=== PATIENT | female | born 1985 | race Hispanic/Latino ===

== ENCOUNTER 2018-02-15 19:35 | Emergency (ER) | payer SELFPAY ==
[~2018-02-15] VITALS: Ht 167.6 cm; Wt 64.9 kg
[2018-02-15] MEDS ORDERED: ASPIRIN 81 MG CHEW TAB PO ONE (19:45)
[2018-02-15] MEDS ORDERED: LORAZEPAM INJ 2 MG/ML VIAL IV ONE (19:45)
[2018-02-15] MEDS ORDERED: LORAZEPAM 1 MG TAB PO ONE (20:00)
[2018-02-15 20:06] LABS: CLARITY,URINE SL CLOUDY (CLEAR); COLOR,URINE YELLOW (YELLOW)
[2018-02-15 20:07] LABS: BASOPHILS % 0.1 % (0.0-1.0); BILIRUBIN,URINE NEGATIVE (NEGATIVE); EOSINOPHILS % 0.1 % (0.0-6.0); HEMATOCRIT 36.7 % (34.2-44.1); HEMOGLOBIN 12.6 g/dL (12.0-16.0); KETONES,URINE TRACE (NEGATIVE); LEUKOCYTE ESTERASE ,URINE NEGATIVE (NEGATIVE); LYMPHOCYTES % 29.8 % (18.0-39.1); MEAN CORPUSCULAR HEMOGLOBIN 31.1 pg (28-32); MEAN CORPUSCULAR HGB CONC 34.3 g/dL (31-35); MEAN CORPUSCULAR VOLUME 90.6 fL (81-99); MONOCYTES # (AUTO) 0.8 (0.2-0.8); MONOCYTES % 7.6 % (4.4-11.3); NEUTROPHILS # (AUTO) 6.2 (2.1-6.9); NEUTROPHILS % 62.1 % (38.7-80.0); NITRITE,URINE NEGATIVE (NEGATIVE); PLATELET COUNT 244 x10e3/uL (140-360); PREGNANCY TEST, URINE NEGATIVE (NEGATIVE); PROTEIN,URINE DIPSTICK NEGATIVE (NEGATIVE); RED BLOOD COUNT 4.05 x10e6/uL (3.6-5.1); RED CELL DISTRIBUTION WIDTH 12.8 % (11.7-14.4); URINE UROBILINOGEN 0.2 mg/dL (0.2 - 1)
[2018-02-15 20:17] LABS: BACTERIA,URINE MODERATE /HPF; EPITHELIAL CELLS,URINE MANY /LPF; RBC,URINE 0-5 /HPF (0-5); TRANSITIONAL EPI CELLS,URINE FEW
[2018-02-15 20:25] LABS: ALANINE AMINOTRANSFERASE 53 IU/L (0-55); ALBUMIN 4.2 g/dL (3.5-5.0); ALBUMIN/GLOBULIN RATIO 1.2 (0.8-2.0); ALKALINE PHOSPHATASE 69 IU/L (40-150); ANION GAP 16.3 mmol/L (8-16); BLOOD UREA NITROGEN 15 mg/dL (7-26); BUN/CREATININE RATIO 16 (6-25); CALCIUM 9.6 mg/dL (8.4-10.2); CARBON DIOXIDE 21 mmol/L (22-29); CHLORIDE 106 mmol/L (98-107); CREATINE KINASE 81 IU/L (29-168); CREATININE, SERUM 0.91 mg/dL (0.57-1.11); EST GLOMERULAR FILTRATION RATE > 60 ML/MIN (60-); GLUCOSE 111 mg/dL (74-118); POTASSIUM 4.3 mmol/L (3.5-5.1); SODIUM 139 mmol/L (136-145)
--- NOTE | 2018-02-15 20:48 | Diagnostic Imaging Report ---
EXAM: XR CHEST 1 VIEW DATE: 02/15/2018 7:37 PM INDICATION: Pain COMPARISON: None FINDINGS: Lines and Tubes: None Heart and Mediastinum: No acute cardiomediastinal findings. Lungs and Pleura: No significant pleural effusion, pneumothorax, or focal consolidation. Bones and Soft Tissues: No acute findings. IMPRESSION: 1. No acute cardiopulmonary findings. Signed by: Dr. Guillaume Gonzalez MD on 02/15/2018 8:44 PM
== END 2018-02-15 21:39 | disposition home or self-care (01) ==
LOC: ER 19:35
DX: R07.89 Other chest pain (principal); R06.02 Shortness of breath; K21.9 Gastro-esophageal reflux disease without esophagitis
CPT/HCPCS: 36415; 71045; 80053; 81001; 81025; 82550; 82553; 84484; 85025; 85379; 93005; 99283

== ENCOUNTER 2020-01-09 17:58 | Emergency (ER) | payer SELFPAY ==
[~2020-01-09] VITALS: Ht 167.6 cm; Wt 64.9 kg
--- OUTSIDE RECORDS SUMMARY | 2020-01-09 18:01 | XMS REPORT ---
Author Author [facility] t Organization [facility] Address [address] [place] [address] Phone Unavailable Care Team Providers Care Stem Mounter Name Role Phone NO, PCP PCP Unavailable Ronnell HERNANDEZ Attphys Unavailable Payers Payer Name Policy Type Policy Number Effective Date Expiration Date S ource Problems This patient has no known problems. Allergies, Adverse Reactions, Alerts Allergy Name Allergy Type Status Severity Reaction(s) Onset Date Inacti ve Date Treating Clinician Comments Source No Known Allergies DA Active U 2016-10-16 00:00:00 [facility] Medications This patient has no known medications. Procedures Procedure Date / Time Performed Performing Clinician [facility] e X-ray of chest, single view 2018-02-15 00:00:00 VEGA HERNANDEZ L [facility] Encounters Start Date/Time End Date/Time Encounter Type Admission Type Attendi [facility] Care Department Encounter ID Source 2018-02-15 19:35:00 2018-02-15 21:39:00 Departed Emergency Room 1 SARA HERNANDEZ [facility] [id number] [facility] Results Test Description Test Time Test Comments Results Result Comments Source [facility] 2019-04-15 14:35:00 RUN DATE: 04/15/19 [facility] PAGE 1 RUN TIME: 1435 Specimen Inquiry RUN USER: INTERFACE PATIENT: TAWANNA FELIPE LOC: KYLE U #: [id number] AGE/SX: 34/F ROOM: [facility] RE04/10/19REG DR: Leigh Das : 89 BED: B DIS: 04/12/19 STATUS: DIS Hussain TLOC: SPEC #: [id number] RECD: 04/12/19 STATUS: SERVANDO REQ #: [id number] ESE: 04/11/19- SUBM DR: Leigh Das MD ENTERED: 04/12/19 SP TYPE: GALLBLADD OTHR DR: Kenny Lino MD ORDERED: GROSS COPIES TO: Leigh Das MD [address] [place] [address] Kenny Lino MD [address] [place] [address] [email or web address] MARKERS: ABNORMAL TISSUE, GALLBLADDER PROCEDURES: GROSS (04/15/19-105) TISSUES: GALLBLADDER, NOS CLINICAL HISTORY COLLECTION DATE: 04/11/2019 CHOLECYSTITIS FINAL DIAGNOSIS Gallbladder, cholecystectomy: ACUTE AND CHRONIC CHOLECYSTITIS CHOLELITHIASIS NEGATIVE FOR MALIGNANCY FA/coleman A 10677 MACROSCOPIC The specimen is received in formalin, labeled with the patient's name, and identified as "gallbladder". It consists of a gallbladder which measures 7 x 2.8 x 2 cm. The serosal surface is unremarkable. The gallbladder contains some brown bile and a couple of green-yellow irregular gallstones measuring CONTINUED ON NEXT PAGE RUN DATE: 04/15/19 [place] Pager [facility] PAGE 2 RUN TIME: 1435 Specimen Inquiry RUN USER: INTERFACE SPEC #: [id number] PATIENT: TAWANNA FELIPE #[id number] (Continued) MACROSCOPIC (Continued) up to 2.6 and 2.1 cm. The gallbladder mucosa is velvety and the gallbladder wall measures up to 0.5 cm in thickness. 0.6 cm of cystic duct is attached to the gallbladder. Samples of the specimen are submitted for microscopic evaluation in a single cassette. GROSS PERFORMED AT [facility] [address] [place] [place] [address] [phone])[phone] MICROSCOPIC All of the stains, including any controls performed, stain appropriately. MICROSCOPIC PERFORMED AT [facility] [address] [place] [address] [phone])[phone] PERFORMING SITE Diagnosis performed at: [facility], [place] [address] [facility] [place] [address] Signed SIGNATURE ON FILE Marielle Moore MD 04/15/19 1435 END OF REPORT HEPATIC FUNCTION PANEL 2019-04-12 10:03:00 Test Item TOTAL PROTEIN (test code = PROT) 6.3 gram/dL 6.4-8.2 L ALBUMIN (test code = ALB) 3.1 g/dL 3.4-5.0 L GLOBULIN (test code = GLOB) 3.2 gram/dL 2.7-4.2 N ALBUMIN/GLOBULIN RATIO (test code = A/G) 1.0 0.75-1.50 N BILIRUBIN TOTAL (test code = BILT) 0.60 mg/dL 0.0-1.0 N BILIRUBIN DIRECT (test code = BILD) 0.18 mg/dL 0.0-0.20 N SGOT/AST (test code = AST) 40 IUnit/L 15-37 H SGPT/ALT (test code = ALT) 48 IUnit/L 12-78 N ALKALINE PHOSPHATASE TOTAL (test code = ALKP) 66 IUnit/L 45-117 N Note change in reference range due to change in reagent. CBC W/AUTO [id number] 09:31:00* Test Item Value Reference Range Interpretation Comments WHITE BLOOD CELL (test code = WBC) 7.8 K/mm3 4.5-12.5 N RED BLOOD CELL (test code = RBC) 3.31 mill/mm3 3.7-5.2 L HEMOGLOBIN (test code = HGB) 10.4 gram/dL 11.5-15.5 L HEMATOCRIT (test code = HCT) 31.3 % 36.0-46.0 L MEAN CELL VOLUME (test code = MCV) 94.6 fL 80-98 N MEAN CELL HGB (test code = MCH) 31.4 picogram 27.0-33.0 N MEAN CELL HGB CONCETRATION (test code = MCHC) 33.2 gram/dL 33.0-36. 0 N RED CELL DISTRIBUTION WIDTH (test code = RDW) 12.8 % 11.6-16. 2 N RED CELL DISTRIBUTION WIDTH SD (test code = RDW-SD) 44.5 fL 37 .0-51.0 N PLATELET COUNT (test code = PLT) 158 K/mm3 150-450 N MEAN PLATELET VOLUME (test code = MPV) 11.0 fL 6.7-11.0 N NEUTROPHIL % (test code = NT%) 78.0 % 39.0-69.0 H IMMATURE GRANULOCYTE % (test code = IG%) 0.5 % 0.0-5.0 N LYMPHOCYTE % (test code = LY%) 14.0 % 25.0-55.0 L MONOCYTE % (test code = MO%) 7.4 % 0.0-10.0 N EOSINOPHIL % (test code = EO%) 0.0 % 0.0-5.0 N BASOPHIL % (test code = BA%) 0.1 % 0.0-1.0 N NUCLEATED RBC % (test code = NRBC%) 0.0 % 0-0 N NEUTROPHIL # (test code = NT#) 6.11 K/mm3 1.8-7.7 N IMMATURE GRANULOCYTE # (test code = IG#) 0.04 x10 3/uL 0-0.03 H LYMPHOCYTE # (test code = LY#) 1.10 K/mm3 1.0-5.0 N MONOCYTE # (test code = MO#) 0.58 K/mm3 0-0.8 N EOSINOPHIL # (test code = EO#) 0.00 K/mm3 0.0-0.5 N BASOPHIL # (test code = BA#) 0.01 K/mm3 0.0-0.2 N NUCLEATED RBC # (test code = NRBC#) 0.00 K/mm3 0.0-0.1 N MANUAL DIFF REQUIRED (test code = MDIFF) NO - HEPA IMAG INCL GB W [id number] 08:40:00 FAX: Leigh Holguin [phone] [place]: B St: ADM FAX: Francisco Baig MD [phone] Name: TAWANNA FELIPE [facility] : 1985 Age/S: 34/F [address] [facility] Unit #: [id number] Loc: [place] [address] Phys: Francisco Baig MD Acct: [id number] Dis Date: Status: ADM IN PHONE #: [phone] Exam Date: 04/11/2019 0831 FAX #: [phone] Reason: abd pain EXAMS: CPT CODE: [id number] HEPA IMAG INCL GB W PHA 78529 HISTORY: Abdominal pain. COMPARISON: Ultrasound from previous day. HIDA scan: 5.5 mCi of technetium 99m Choletec. Se quential images obtained. Homogeneous uptake within the live r. Excretion into the biliary system as well as into the small bowel. Nonv isualization of the gallbladder at 60 minutes would suggest cholecystitis. Correlate clinically. IMPRESSION: Nonvisualiz ation of the gallbladder at 60 minutes may suggest cholecystitis. Correl ate with clinical symptomatology. at 0840 Reported and signed by: Dacia Steinberg M.D. CC: Leigh Das MD; Francisco Baig MD Technologist: Niyah Staples RT(N) Trnscrd Date/Time/By: 04/11/2019 (0840) : By: [email or web address] Orig Print D/T: S: 04/11/2019 (3280) PAGE 1 Signed Report COMPREHENSIVE METABOLIC PANEL 2019-04-11 03:42:00* Test Item Value Reference Range Interpretation Comments SODIUM (test code = NA) 142 mmol/L 136-145 N POTASSIUM (test code = K) 4.4 mmol/L 3.5-5.1 N CHLORIDE (test code = CL) 112.0 mmol/L 98-107 H CARBON DIOXIDE (test code = CO2) 24.0 mmol/L 21-32 N ANION GAP (test code = GAP) 10.4 10-20 N GLUCOSE (test code = GLU) 93 mg/dL 74-106 N BLOOD UREA NITROGEN (test code = BUN) 7 mg/dL 7-18 N GLOMERULAR FILTRATION RATE (test code = GFR) > 60 mL/min >=60 Estimated GFR by using Modified MDRD formula.Chronic kidney disease is defined as either kidney damageor GFR <60 mL/min/1.73 m2 for >3 months. CREATININE (test code = CREAT) 0.60 mg/dL 0.55-1.02 N Note change in reference range due to change in reagent. BUN/CREATININE RATIO (test code = BUN/CREA) 11.7 10-20 N TOTAL PROTEIN (test code = PROT) 5.9 gram/dL 6.4-8.2 L ALBUMIN (test code = ALB) 2.9 g/dL 3.4-5.0 L GLOBULIN (test code = GLOB) 3.0 gram/dL 2.7-4.2 N ALBUMIN/GLOBULIN RATIO (test code = A/G) 1.0 0.75-1.50 N CALCIUM (test code = CA) 8.3 mg/dL 8.5-10.1 L BILIRUBIN TOTAL (test code = BILT) 0.70 mg/dL 0.0-1.0 N SGOT/AST (test code = AST) 27 IUnit/L 15-37 N SGPT/ALT (test code = ALT) 29 IUnit/L 12-78 N ALKALINE PHOSPHATASE TOTAL (test code = ALKP) 52 IUnit/L 45-117 N Note change in reference range due to change in reagent. [id number] 03:42:00* Test Item Value Reference Range Interpretation Comments LIPASE (test code = LIP) 164 U/L 73.0-393.0 N COMPREHENSIVE METABOLIC [id number] 03:29:00* Test Item Value Reference Range Interpretation Comments SODIUM (test code = NA) 142 mmol/L 136-145 N POTASSIUM (test code = K) 4.4 mmol/L 3.5-5.1 N CHLORIDE (test code = CL) 112.0 mmol/L 98-107 H CARBON DIOXIDE (test code = CO2) mmol/L 21-32 ANION GAP (test code = GAP) 10-20 GLUCOSE (test code = GLU) mg/dL 74-106 BLOOD UREA NITROGEN (test code = BUN) mg/dL 7-18 GLOMERULAR FILTRATION RATE (test code = GFR) mL/min >=60 CREATININE (test code = CREAT) mg/dL 0.55-1.02 BUN/CREATININE RATIO (test code = BUN/CREA) 10-20 TOTAL PROTEIN (test code = PROT) gram/dL 6.4-8.2 ALBUMIN (test code = ALB) g/dL 3.4-5.0 GLOBULIN (test code = GLOB) gram/dL 2.7-4.2 ALBUMIN/GLOBULIN RATIO (test code = A/G) 0.75-1.50 CALCIUM (test code = CA) mg/dL 8.5-10.1 BILIRUBIN TOTAL (test code = BILT) mg/dL 0.0-1.0 SGOT/AST (test code = AST) IUnit/L 15-37 SGPT/ALT (test code = ALT) IUnit/L 12-78 ALKALINE PHOSPHATASE TOTAL (test code = ALKP) IUnit/L 45-117 [id number] 03:29:00* Test Item Value Reference Range Interpretation Comments LIPASE (test code = LIP) U/L 73.0-393.0 CBC W/AUTO [id number] 03:26:00* Test Item Value Reference Range Interpretation Comments WHITE BLOOD CELL (test code = WBC) 9.1 K/mm3 4.5-12.5 N RED BLOOD CELL (test code = RBC) 3.31 mill/mm3 3.7-5.2 L HEMOGLOBIN (test code = HGB) 10.2 gram/dL 11.5-15.5 L RESULT VERIFIED BY REPEAT ANALYSIS HEMATOCRIT (test code = HCT) 31.1 % 36.0-46.0 L MEAN CELL VOLUME (test code = MCV) 94.0 fL 80-98 N MEAN CELL HGB (test code = MCH) 30.8 picogram 27.0-33.0 N MEAN CELL HGB CONCETRATION (test code = MCHC) 32.8 gram/dL 33.0-36. 0 L RED CELL DISTRIBUTION WIDTH (test code = RDW) 13.1 % 11.6-16. 2 N RED CELL DISTRIBUTION WIDTH SD (test code = RDW-SD) 45.0 fL 37 .0-51.0 N PLATELET COUNT (test code = PLT) 164 K/mm3 150-450 RESULT VERIFIED BY REPEAT ANALYSIS MEAN PLATELET VOLUME (test code = MPV) 11.1 fL 6.7-11.0 H NEUTROPHIL % (test code = NT%) 74.7 % 39.0-69.0 H IMMATURE GRANULOCYTE % (test code = IG%) 0.3 % 0.0-5.0 N LYMPHOCYTE % (test code = LY%) 17.2 % 25.0-55.0 L MONOCYTE % (test code = MO%) 7.4 % 0.0-10.0 N EOSINOPHIL % (test code = EO%) 0.2 % 0.0-5.0 N BASOPHIL % (test code = BA%) 0.2 % 0.0-1.0 N NUCLEATED RBC % (test code = NRBC%) 0.0 % 0-0 N NEUTROPHIL # (test code = NT#) 6.75 K/mm3 1.8-7.7 N IMMATURE GRANULOCYTE # (test code = IG#) 0.03 x10 3/uL 0-0.03 N LYMPHOCYTE # (test code = LY#) 1.56 K/mm3 1.0-5.0 N MONOCYTE # (test code = MO#) 0.67 K/mm3 0-0.8 N EOSINOPHIL # (test code = EO#) 0.02 K/mm3 0.0-0.5 N BASOPHIL # (test code = BA#) 0.02 K/mm3 0.0-0.2 N NUCLEATED RBC # (test code = NRBC#) 0.00 K/mm3 0.0-0.1 N - US ABDOMEN [id number] 15:03:00 Name: TAWANNA FELIPE [facility] : 1985 Age/S: 34 / F [address] [facility] Unit #: [id number] Loc: [place] [address] Phys: Francisco Baig MD Acct: [id number] Dis Date: Status: ADM IN PHONE #: [phone] Exam Date: 04/10/2019 1431 FAX #: [phone] Reason: upper abd pain EXAMS: CPT CODE: [id number] US ABDOMEN LTD 22613 REASON FOR EXAM: upper abd pain EXAM ORDER DATE: 04/10/2019 11:51 AM Attending M.D.: Francisco Baig MD PROCEDURE: - US ABDOMEN LTD Technique: Grayscale and color Doppler images images of the right-upper quadrant of the abdomen. Comparison: CT of the abdomen and pelvis earlier today at 10:57 AM FINDINGS: Aorta and IVC: Grossly normal caliber. Liver: Size: 15.2 cm craniocaudally Parenchyma and contour: Smooth contour. Normal echogenicity. Cysts and/or masses: None. Intrahepatic bile ducts: No intrahepatic biliary ductal dilation Common bile duct: 3.4 mm in diameter. No echogenic filling defects in visualized duct. Gallbladder: Stones/sludge: Multiple intraluminal stones are present, also seen on prior CT scan Wall: 5.8 mm in thickness. No discontinuity. No polyps. Gallbladder wall is slightly edematous. Sonographic Gallegos's sign: Negative Portal vein: Portal vein caliber is within normal limits. Portal vein is patent. Flow velocities normal. Mildly pulsatile waveforms are within normal limits. Pancreas: Incompletely visualized. However the visualized portions are grossly within normal limits. Right kidney: parenchyma echogenicity: Normal echogenicity size: 10.5 x 4.1 x 4.9 cm PAGE 1 Signed Report (CONTINUED) Name: TAWANNA FELIPE [facility] : 1985 Age/S: 34 / F [address] Unit #: [id number] Loc: [place] [address] Phys: Francisco Baig MD Acct: [id number] Dis Date: Status: ADM IN PHONE #: [phone] Exam Date: 04/10/2019 1431 FAX #: [phone] Reason: upper abd pain EXAMS: CPT CODE: [id number] US ABDOMEN LTD 90629 < Continued> stones: none cysts/masses: none hydronephrosis: none Ascites/pleural effusions: None IMPRESSION: Cholelithiasis with thickening and edema of the gallbladder wall. These findings may be seen with cholecystitis however the sonographic Gallegos sign is negative. Please note that the sonographic Gallegos sign may not be a reliable indicator of cholecystitis if the patient received pain medication prior to the exam. at 1503 Reported and signed by: Lucas Orlando MD CC: Francisco Baig MD Technologist: MIGUELITO SULLIVAN(R),[facility] Date/Time: 04/10/2019 (1503) [email or web address] Orig Print D/T: S: 04/10/2019 (1503) Probe: PAGE 2 Signed Report - CT ABD PELVIS W/CONT 2019-04-10 11:35:00 Name: TAWANNA FELIPE [facility] : 1985 Age/S: 34 / F [address] Unit #: [id number] Loc: [place] [address] Phys: Francisco Baig MD Acct: [id number] Dis Date: Status: REG ER PHONE #: [phone] Exam Date: 04/10/2019 1105 FAX #: [phone] Reason: LUQ and epigastric pain EXAMS: CPT CODE: [id number] CT ABD PELVIS W/CONT 76062 HISTORY: Left upper quadrant pain and epigastric pain. COMPARISON: None available. CT abdomen and pelvis with IV contrast: 100 mL of Isovue-370. Automated exposure control CT ABDOMEN: The lung bases are clear. The liver is enhancing homogeneously. No abnormal enhancing masses or lesions. The liver measured 16.7 cm in length. Main portal vein and hepatic artery are patent. Moderately distended gallbladder with calcified gallstones. Correlate for cholecystitis. Unremarkable spleen enhancing homogeneously. The stomach distends incompletely however it is normal in appearance. Pancreas is enhancing homogeneously. Unremarkable adrenals. Kidneys are free from hydroureteronephrosis. Homogeneous enhancement. Bilateral excretion is noted. No pathologic adenopathy. Well- opacified abdominal and pelvic vasculature. No bowel obstruction or colitis or diverticulitis or enteritis. Constipation. Mild thickening of the splenic flexure and proximal left colon likely underdistention is no inflammation is noted. CT PELVIS: Appendix is not visible with certainty but no inflammatory changes noted. Pelvic bowel loops are unobstructed. Unremarkable urinary bladder. Unremarkable uterus and ovaries demonstrating follicular changes. Small free fluid. No free air or abscess. No pelvic pathologic adenopathy. The subcutaneous tissues and the musculature are normal in appearance. No lytic or blastic lesions are noted within the bony skelet on. IMPRESSION: PAGE 1 Sign ed Report (CONTINUED) Name: TAWANNA FELIPE [facility] : 1985 Age/S: 34 / F [address] [facility] Unit #: [id number] Loc: [place] [address] Phys: Francisco Baig MD Acct: [id number] Dis Date: Status: REG ER PHONE #: [phone] Exam Date: 04/10/2019 1105 FAX #: [phone] Reason: LUQ and epigastric pain EXAMS: CPT CODE: [id number] CT ABD PELVIS W/CONT 73216 <Continued> Moderately distended gallbladder with calcified gallstones. Correlate for cholecystitis. No other acute intra-abdominal or intrapelvic pathology. Appendix is not visible but no inflammatory changes noted. Mild thickening of the splenic flexure and proximal left colon without inflammation likely underdistention. at 1137 Reported and signed by: Kaveh Steinberg M.D. CC: Francisco Baig MD Technologist:Eber Church RT(R)(CT) CTDI: DLP: Trnscb Date/Time: 04/10/2019 (1318) [email or web address] Orig Print D/T: S: 04/10/2019 (4088) PAGE 2 Signed Report URINALYSIS [id number] 11:22:00* Test Item Value Reference Range Interpretation Comments UA COLOR (test code = COLU) YELLOW YELLOW UA APPEARANCE (test code = APPU) CLEAR CLEAR UA GLUCOSE DIPSTICK (test code = DGLUU) TRACE mg/dL NEGATIVE UA BILIRUBIN DIPSTICK (test code = BILU) NEGATIVE NEGATIVE UA KETONE DIPSTICK (test code = KETU) NEGATIVE mg/dL NEGATIVE UA SPECIFIC GRAVITY (test code = SGU) 1.015 1.001-1.035 UA BLOOD DIPSTICK (test code = JUDE) NEGATIVE NEGATIVE UA PH DIPSTICK (test code = KIMBERLY) 8.0 5.0-8.0 UA PROTEIN DIPSTICK (test code = PROU) NEGATIVE mg/dL Neg-15 UA UROBILINIOGEN DIPSTICK (test code = URO) 0.2 mg/dL 0.0-0.2 UA NITRITE DIPSTICK (test code = EUGENE) NEGATIVE NEGATIVE UA LEUKOCYTE ESTERASE W REFLEX (test code = LEUUR) NEGATIVE NEG ATIVE UA WBC (test code = WBCU) 0-1 per HPF 0-5 UA RBC (test code = RBCU) NONE SEEN per HPF 0-5 UA EPITHELIAL CELLS (test code = EPIU) Few (2-5/hpf) per HPF Few UA BACTERIA (test code = BACU) FEW per HPF NONE Urine Source? Clean CatchURINALYSIS [id number] 10:53:00* Test Item Value Reference Range Interpretation Comments UA COLOR (test code = COLU) YELLOW YELLOW UA APPEARANCE (test code = APPU) CLEAR CLEAR UA GLUCOSE DIPSTICK (test code = DGLUU) TRACE mg/dL NEGATIVE UA BILIRUBIN DIPSTICK (test code = BILU) NEGATIVE NEGATIVE UA KETONE DIPSTICK (test code = KETU) NEGATIVE mg/dL NEGATIVE UA SPECIFIC GRAVITY (test code = SGU) 1.015 1.001-1.035 UA BLOOD DIPSTICK (test code = JUDE) NEGATIVE NEGATIVE UA PH DIPSTICK (test code = KIMBERLY) 8.0 5.0-8.0 UA PROTEIN DIPSTICK (test code = PROU) NEGATIVE mg/dL Neg-15 UA UROBILINIOGEN DIPSTICK (test code = URO) 0.2 mg/dL 0.0-0.2 UA NITRITE DIPSTICK (test code = EUGENE) NEGATIVE NEGATIVE UA LEUKOCYTE ESTERASE W REFLEX (test code = LEUUR) NEGATIVE NEG ATIVE UA WBC (test code = WBCU) per HPF 0-5 UA RBC (test code = RBCU) per HPF 0-5 UA EPITHELIAL CELLS (test code = EPIU) per HPF Few UA BACTERIA (test code = BACU) per HPF NONE Urine Source? Clean CatchBASIC METABOLIC [id number] 10:22:00* Test Item Value Reference Range Interpretation Comments SODIUM (test code = NA) 143 mmol/L 136-145 N POTASSIUM (test code = K) 4.1 mmol/L 3.5-5.1 N CHLORIDE (test code = CL) 107.0 mmol/L 98-107 N CARBON DIOXIDE (test code = CO2) 28.0 mmol/L 21-32 N ANION GAP (test code = GAP) 12.1 10-20 N GLUCOSE (test code = GLU) 99 mg/dL 74-106 N BLOOD UREA NITROGEN (test code = BUN) 10 mg/dL 7-18 N GLOMERULAR FILTRATION RATE (test code = GFR) > 60 mL/min >=60 Estimated GFR by using Modified MDRD formula.Chronic kidney disease is defined as either kidney damageor GFR <60 mL/min/1.73 m2 for >3 months. CREATININE (test code = CREAT) 0.80 mg/dL 0.55-1.02 N Note change in reference range due to change in reagent. BUN/CREATININE RATIO (test code = BUN/CREA) 13.2 10-20 N CALCIUM (test code = CA) 9.3 mg/dL 8.5-10.1 N HEPATIC FUNCTION [id number] 10:22:00* Test Item Value Reference Range Interpretation Comments TOTAL PROTEIN (test code = PROT) 7.3 gram/dL 6.4-8.2 N ALBUMIN (test code = ALB) 3.9 g/dL 3.4-5.0 N GLOBULIN (test code = GLOB) 3.4 gram/dL 2.7-4.2 N ALBUMIN/GLOBULIN RATIO (test code = A/G) 1.1 0.75-1.50 N BILIRUBIN TOTAL (test code = BILT) 0.50 mg/dL 0.0-1.0 N BILIRUBIN DIRECT (test code = BILD) 0.16 mg/dL 0.0-0.20 N SGOT/AST (test code = AST) 18 IUnit/L 15-37 N SGPT/ALT (test code = ALT) 17 IUnit/L 12-78 N ALKALINE PHOSPHATASE TOTAL (test code = ALKP) 62 IUnit/L 45-117 N Note change in reference range due to change in reagent. [id number] 10:22:00* Test Item Value Reference Range Interpretation Comments LIPASE (test code = LIP) 68 U/L 73.0-393.0 L HCG SERUM [id number] 10:22:00* Test Item Value Reference Range Interpretation Comments HCG SERUM QUAL (test code = HCGQL) NEGATIVE NEGATIVE This HCGQL test is NOT applicable for MALE patients.Check with nurse about probable order error.If Tumor Marker Test needed, nurse should order test "HCGTU"(Test #550.52214) [id number] 10:22:00* Test Item Value Reference Range Interpretation Comments TROPONIN-I (test code = TROPI) <0.015 ng/mL 0-0.045 N BASIC METABOLIC [id number] 10:12:00* Test Item Value Reference Range Interpretation Comments SODIUM (test code = NA) 143 mmol/L 136-145 N POTASSIUM (test code = K) 4.1 mmol/L 3.5-5.1 N CHLORIDE (test code = CL) 107.0 mmol/L 98-107 N CARBON DIOXIDE (test code = CO2) mmol/L 21-32 ANION GAP (test code = GAP) 10-20 GLUCOSE (test code = GLU) mg/dL 74-106 BLOOD UREA NITROGEN (test code = BUN) mg/dL 7-18 GLOMERULAR FILTRATION RATE (test code = GFR) mL/min >=60 CREATININE (test code = CREAT) mg/dL 0.55-1.02 BUN/CREATININE RATIO (test code = BUN/CREA) 10-20 CALCIUM (test code = CA) mg/dL 8.5-10.1 HEPATIC FUNCTION [id number] 10:12:00* Test Item Value Reference Range Interpretation Comments TOTAL PROTEIN (test code = PROT) gram/dL 6.4-8.2 ALBUMIN (test code = ALB) g/dL 3.4-5.0 GLOBULIN (test code = GLOB) gram/dL 2.7-4.2 ALBUMIN/GLOBULIN RATIO (test code = A/G) 0.75-1.50 BILIRUBIN TOTAL (test code = BILT) mg/dL 0.0-1.0 BILIRUBIN DIRECT (test code = BILD) mg/dL 0.0-0.20 SGOT/AST (test code = AST) IUnit/L 15-37 SGPT/ALT (test code = ALT) IUnit/L 12-78 ALKALINE PHOSPHATASE TOTAL (test code = ALKP) IUnit/L 45-117 [id number] 10:12:00* Test Item Value Reference Range Interpretation Comments LIPASE (test code = LIP) U/L 73.0-393.0 HCG SERUM [id number] 10:12:00* Test Item Value Reference Range Interpretation Comments HCG SERUM QUAL (test code = HCGQL) NEGATIVE NEGATIVE This HCGQL test is NOT applicable for MALE patients.Check with nurse about probable order error.If Tumor Marker Test needed, nurse should order test "HCGTU"(Test #550.67303) [id number] 10:12:00* Test Item Value Reference Range Interpretation Comments TROPONIN-I (test code = TROPI) ng/mL 0-0.045 BASIC METABOLIC [id number] 10:11:00* Test Item Value Reference Range Interpretation Comments SODIUM (test code = NA) mmol/L 136-145 POTASSIUM (test code = K) mmol/L 3.5-5.1 CHLORIDE (test code = CL) mmol/L 98-107 CARBON DIOXIDE (test code = CO2) mmol/L 21-32 ANION GAP (test code = GAP) 10-20 GLUCOSE (test code = GLU) mg/dL 74-106 BLOOD UREA NITROGEN (test code = BUN) mg/dL 7-18 GLOMERULAR FILTRATION RATE (test code = GFR) mL/min >=60 CREATININE (test code = CREAT) mg/dL 0.55-1.02 BUN/CREATININE RATIO (test code = BUN/CREA) 10-20 CALCIUM (test code = CA) mg/dL 8.5-10.1 HEPATIC FUNCTION [id number] 10:11:00* Test Item Value Reference Range Interpretation Comments TOTAL PROTEIN (test code = PROT) gram/dL 6.4-8.2 ALBUMIN (test code = ALB) g/dL 3.4-5.0 GLOBULIN (test code = GLOB) gram/dL 2.7-4.2 ALBUMIN/GLOBULIN RATIO (test code = A/G) 0.75-1.50 BILIRUBIN TOTAL (test code = BILT) mg/dL 0.0-1.0 BILIRUBIN DIRECT (test code = BILD) mg/dL 0.0-0.20 SGOT/AST (test code = AST) IUnit/L 15-37 SGPT/ALT (test code = ALT) IUnit/L 12-78 ALKALINE PHOSPHATASE TOTAL (test code = ALKP) IUnit/L 45-117 [id number] 10:11:00* Test Item Value Reference Range Interpretation Comments LIPASE (test code = LIP) U/L 73.0-393.0 HCG SERUM [id number] 10:11:00* Test Item Value Reference Range Interpretation Comments HCG SERUM QUAL (test code = HCGQL) NEGATIVE NEGATIVE This HCGQL test is NOT applicable for MALE patients.Check with nurse about probable order error.If Tumor Marker Test needed, nurse should order test "HCGTU"(Test #[id number]) [id number] 10:11:00* Test Item Value Reference Range Interpretation Comments TROPONIN-I (test code = TROPI) ng/mL 0-0.045 CBC W/O [id number] 09:56:00* Test Item Value Reference Range Interpretation Comments WHITE BLOOD CELL (test code = WBC) 9.1 K/mm3 4.5-12.5 N RED BLOOD CELL (test code = RBC) 4.08 mill/mm3 3.7-5.2 N HEMOGLOBIN (test code = HGB) 12.6 gram/dL 11.5-15.5 N HEMATOCRIT (test code = HCT) 38.0 % 36.0-46.0 N MEAN CELL VOLUME (test code = MCV) 93.1 fL 80-98 N MEAN CELL HGB (test code = MCH) 30.9 picogram 27.0-33.0 N MEAN CELL HGB CONCETRATION (test code = MCHC) 33.2 gram/dL 33.0-36. 0 N RED CELL DISTRIBUTION WIDTH (test code = RDW) 13.2 % 11.6-16. 2 N PLATELET COUNT (test code = PLT) 224 K/mm3 150-450 N MEAN PLATELET VOLUME (test code = MPV) 10.4 fL 6.7-11.0 N TROPONIN I [id number] 09:52:00* Test Item Value Reference Range Interpretation Comments TROPONIN I RAPID (test code = TROPIRAP) 0.00 ng/mL <0.08 Please Note New Reference Range 0.00-0.079 ng/mL - Negative>or= 0.08 ng/mL - Positive The use of serial sampling and testing protocol is arecommended practice.An elevated troponin level alone is often not sufficient fordiagnosis of myocardial infarction. Troponin results obtained by different assays may vary.Evaluation of the extent of myocardial damage based onincrease of troponin would be valid only if similarmethodology is used. CHEST SINGLE (NOT PORTABLE)2018-02-15 20:44:00 [place] [address] Patient Name: TAWANNA KOO MR #: [id number] : 1985 Age/Sex: 32/F Req #: [id number] Adm Physician: Ordered by: SARA HERNANDEZ MD Report #: [id number] Location: ER Room/Bed: Procedure: [id number] DX/CHEST SINGLE (NOT PORTABLE) Exam Date: 02/15/18 Exam Time: 2029 REPORT STATUS: Signed EXAM: XR CHEST 1 VIEW DATE: 02/15/2018 7:37 PM INDICATION: Pain COMPARISON: None FINDINGS: Lines and Tubes: No ne Heart and Mediastinum: No acute cardiomediastinal findings. Lungs a nd Pleura: No significant pleural effusion, pneumothorax, or focal consolidati on. Bones and Soft Tissues: No acute findings. IMPRESSION: 1. No a cute cardiopulmonary findings. Signed by: Dr. Scout Gonzalez MD on 8:44 PM Dictated By: SCOUT GONZALEZ MD 43 Transcribed By: TERRANCE on 02/15/182043 CO PY TO: SARA HERNANDEZ MD Creatine Kinase [id number] 20:32:00* Test Item Value Reference Range Interpretation Comments Creatine Kinase MB (test code = 34316-0) 0.60 0-5.0 [facility] HospitalTroponin [id number] 20:32:00* Test Item Value Reference Range Interpretation Comments Troponin I (test code = QHV0951) -0.001 0-0.300 [facility] [id number] 20:26:00* Test Item Value Reference Range Interpretation Comments Sodium Level (test code = 2951-2) 139 136-145 [facility] HospitalPotassium Snbfk2508-31-90 20:26:00* Test Item Value Reference Range Interpretation Comments Potassium Level (test code = 2823-3) 4.3 3.5-5.1 [facility] HospitalChloride [id number] 20:26:00* Test Item Value Reference Range Interpretation Comments Chloride Level (test code = 2075-0) 106 98-107 [facility] HospitalCarbon Dioxide [id number] 20:26:00* Test Item Value Reference Range Interpretation Comments Carbon Dioxide Level (test code = 2028-9) 21 22-29 [facility] HospitalAnion [id number] 20:26:00* Test Item Value Reference Range Interpretation Comments Anion Gap (test code = 46824-2) 16.3 8-16 [facility] HospitalBlood Urea [id number] 20:26:00* Test Item Value Reference Range Interpretation Comments Blood Urea Nitrogen (test code = 3094-0) 15 7-26 [facility] HospitalCreatinine2018-06-28 20:26:00* Test Item Value Reference Range Interpretation Comments Creatinine (test code = 2160-0) 0.91 0.57-1.11 [facility] HospitalBUN/Creatinine [id number] 20:26:00* Test Item Value Reference Range Interpretation Comments BUN/Creatinine Ratio (test code = 3097-3) 16 6-25 [facility] HospitalEstimat Glomerular Filtration Rate 2018-02-15 20:26:00* Test Item Value Reference Range Interpretation Comments Estimat Glomerular Filtration Rate (test code = 68601-8) 60- >60 Ranges were taken from the National Kidney Disease Education Program and the [facility] literature.Reference ranges:60 or greater: Wzewsh59-01 ( for 3 consecutive months): Chronic kidney disease 15 or less: Kidney failureSouth [facility] & [facility] HospitalGlucose Jvbir1333-43-27 20:26:00* Test Item Value Reference Range Interpretation Comments Glucose Level (test code = JYC0736) 111 74-118 [facility] HospitalCalcium Fzxmv3807-68-24 20:26:00* Test Item Value Reference Range Interpretation Comments Calcium Level (test code = 07271-0) 9.6 8.4-10.2 [facility] HospitalTotal Ojebsjzhi7836-04-77 20:26:00* Test Item Value Reference Range Interpretation Comments Total Bilirubin (test code = 1975-2) 0.4 0.2-1.2 [facility] HospitalAspartate Amino Transf (AST/SGOT) 2018-02-15 20:26:00* Test Item Value Reference Range Interpretation Comments Aspartate Amino Transf (AST/SGOT) (test code = Aspartate Amino Transf (AST/SGOT)) 111 5-34 [facility] HospitalAlanine Aminotransferase (ALT/SGPT) 2018-02-15 20:26:00* Test Item Value Reference Range Interpretation Comments Alanine Aminotransferase (ALT/SGPT) (test code = 1742-6) 53 0-55 [facility] HospitalTotal Tlkkfvz3528-38-75 20:26:00* Test Item Value Reference Range Interpretation Comments Total Protein (test code = 2885-2) 7.8 6.5-8.1 [facility] HospitalAlbumin2018-06-28 20:26:00* Test Item Value Reference Range Interpretation Comments Albumin (test code = 1751-7) 4.2 3.5-5.0 [facility] HospitalGlobulin2018-06-28 20:26:00* Test Item Value Reference Range Interpretation Comments Globulin (test code = 94462-8) 3.6 2.3-3.5 [facility] HospitalAlbumin/Globulin Mbsnj1580-37-70 20:26:00 * Test Item Value Reference Range Interpretation Comments Albumin/Globulin Ratio (test code = 1759-0) 1.2 0.8-2.0 [facility] HospitalAlkaline Yixjrmhyxjv6660-16-93 20:26:00* Test Item Value Reference Range Interpretation Comments Alkaline Phosphatase (test code = 6768-6) 69 40-150 [facility] HospitalCreatine Etwvtn2744-26-00 20:26:00* Test Item Value Reference Range Interpretation Comments Creatine Kinase (test code = 2157-6) 81 29-168 [facility] HospitalD-Dimer Quantitative (PE/DVT)2018-02-15 20:22:00* Test Item Value Reference Range Interpretation Comments D-Dimer Quantitative (PE/DVT) (test code = 50874-2) 0.27 0. 00-0.45 As with all in vitro diagnostic tests, the test results should be interpreted by the physician in conjunction with clinical findings and other test results.Test results are reported in NEW D-dimer units(ug/mLFEU).[facility] HospitalUrine [id number] 20:17:00* Test Item Value Reference Range Interpretation Comments Urine WBC (test code = 5821-4) NONE 0-5 [facility] HospitalUrine [id number] 20:17:00* Test Item Value Reference Range Interpretation Comments Urine RBC (test code = 13056-0) 0-5 0-5 [facility] HospitalUrine Xdcewjey5515-41-18 20:17:00* Test Item Value Reference Range Interpretation Comments Urine Bacteria (test code = 18589-4) MODERATE NONE [facility] HospitalUrine Epithelial [id number] 20:17:00 * Test Item Value Reference Range Interpretation Comments Urine Epithelial Cells (test code = 41344-2) MANY NONE [facility] HospitalUrine Transitional Epithelial Cells 2018-02-15 20:17:00* Test Item Value Reference Range Interpretation Comments Urine Transitional Epithelial Cells (test code = 8249-5) FEW NONE [facility] HospitalWhite Blood Ttpnx5041-49-27 20:07:00* Test Item Value Reference Range Interpretation Comments White Blood Count (test code = 6690-2) 10.00 4.8-10.8 [facility] HospitalRed Blood [id number] 20:07:00* Test Item Value Reference Range Interpretation Comments Red Blood Count (test code = 789-8) 4.05 3.6-5.1 [facility] HospitalHemoglobin2018-06-28 20:07:00* Test Item Value Reference Range Interpretation Comments Hemoglobin (test code = 27768-2) 12.6 12.0-16.0 [facility] HospitalHematocrit2018-06-28 20:07:00* Test Item Value Reference Range Interpretation Comments Hematocrit (test code = 4544-3) 36.7 34.2-44.1 [facility] HospitalMean Corpuscular Qoedqn9997-05-15 20:07:00* Test Item Value Reference Range Interpretation Comments Mean Corpuscular Volume (test code = 787-2) 90.6 81-99 [facility] HospitalMean Corpuscular Ouledfjvqg0806-88-74 20:07:00* Test Item Value Reference Range Interpretation Comments Mean Corpuscular Hemoglobin (test code = 785-6) 31.1 28-32 [facility] HospitalMean Corpuscular Hemoglobin Concent 2018-02-15 20:07:00* Test Item Value Reference Range Interpretation Comments Mean Corpuscular Hemoglobin Concent (test code = 786-4) 34.3 31-35 [facility] HospitalRed Cell Distribution [id number] 20:07:00* Test Item Value Reference Range Interpretation Comments Red Cell Distribution Width (test code = 98097-4) 12.8 11.7 -14.4 [facility] HospitalPlatelet Clhes1528-23-42 20:07:00* Test Item Value Reference Range Interpretation Comments Platelet Count (test code = 777-3) 244 140-360 [facility] HospitalNeutrophils (%) (Auto)2018-02-15 20:07:00 * Test Item Value Reference Range Interpretation Comments Neutrophils (%) (Auto) (test code = 94453-2) 62.1 38.7-80.0 [facility] HospitalLymphocytes (%) (Auto)2018-02-15 20:07:00 * Test Item Value Reference Range Interpretation Comments Lymphocytes (%) (Auto) (test code = 736-9) 29.8 18.0-39.1 [facility] HospitalMonocytes (%) (Auto)2018-02-15 20:07:00* Test Item Value Reference Range Interpretation Comments Monocytes (%) (Auto) (test code = 5905-5) 7.6 4.4-11.3 [facility] HospitalEosinophils (%) (Auto)2018-02-15 20:07:00 * Test Item Value Reference Range Interpretation Comments Eosinophils (%) (Auto) (test code = 713-8) 0.1 0.0-6.0 [facility] HospitalBasophils (%) (Auto)2018-02-15 20:07:00* Test Item Value Reference Range Interpretation Comments Basophils (%) (Auto) (test code = 706-2) 0.1 0.0-1.0 [facility] HospitalIM GRANULOCYTES %2018-02-15 20:07:00* Test Item Value Reference Range Interpretation Comments IM GRANULOCYTES % (test code = IM GRANULOCYTES %) 0.3 0.0- 1.0 [facility] HospitalNeutrophils # (Auto)2018-02-15 20:07:00* Test Item Value Reference Range Interpretation Comments Neutrophils # (Auto) (test code = 751-8) 6.2 2.1-6.9 [facility] HospitalLymphocytes # (Auto)2018-02-15 20:07:00* Test Item Value Reference Range Interpretation Comments Lymphocytes # (Auto) (test code = 77520-4) 3.0 1.0-3.2 [facility] HospitalMonocytes # (Auto)2018-02-15 20:07:00* Test Item Value Reference Range Interpretation Comments Monocytes # (Auto) (test code = 742-7) 0.8 0.2-0.8 [facility] HospitalEosinophils # (Auto)2018-02-15 20:07:00* Test Item Value Reference Range Interpretation Comments Eosinophils # (Auto) (test code = 711-2) 0.0 0.0-0.4 [facility] HospitalBasophils # (Auto)2018-02-15 20:07:00* Test Item Value Reference Range Interpretation Comments Basophils # (Auto) (test code = 704-7) 0.0 0.0-0.1 [facility] HospitalAbsolute Immature Granulocyte (auto 2018-02-15 20:07:00* Test Item Value Reference Range Interpretation Comments Absolute Immature Granulocyte (auto (rae t code = Absolute Immature Granulocyte (auto) 0.03 0-0.1 [facility] HospitalUrine [id number] 20:07:00* Test Item Value Reference Range Interpretation Comments Urine Color (test code = 5778-6) YELLOW YELLOW [facility] HospitalUrine Etxasma6535-97-42 20:07:00* Test Item Value Reference Range Interpretation Comments Urine Clarity (test code = 08137-3) SL CLOUDY CLEAR [facility] HospitalUrine Specific Uhijprl2524-21-16 20:07:00 * Test Item Value Reference Range Interpretation Comments Urine Specific Hawi (test code = 5811-5) 1.030 1.010-1.02 5 [facility] HospitalUrine [id number] 20:07:00* Test Item Value Reference Range Interpretation Comments Urine pH (test code = 92584-5) 6 5-7 [facility] HospitalUrine Leukocyte [id number] 20:07:00* Test Item Value Reference Range Interpretation Comments Urine Leukocyte Esterase (test code = 5799-2) NEGATIVE NEGATIVE [facility] HospitalUrine Hezxxlw2519-04-09 20:07:00* Test Item Value Reference Range Interpretation Comments Urine Nitrite (test code = 30364-4) NEGATIVE NEGATIVE [facility] HospitalUrine Bmquknm5391-18-49 20:07:00* Test Item Value Reference Range Interpretation Comments Urine Protein (test code = 5804-0) NEGATIVE NEGATIVE [facility] HospitalUrine Glucose (UA)2018-02-15 20:07:00* Test Item Value Reference Range Interpretation Comments Urine Glucose (UA) (test code = 2349-9) NEGATIVE NEGATIVE [facility] HospitalUrine [id number] 20:07:00* Test Item Value Reference Range Interpretation Comments Urine Ketones (test code = 22834-5) TRACE NEGATIVE [facility] HospitalUrine Wikdiefnxawv8373-44-91 20:07:00* Test Item Value Reference Range Interpretation Comments Urine Urobilinogen (test code = 92916-3) 0.2 0.2-1 [facility] HospitalUrine Acltqgvpb2630-94-92 20:07:00* Test Item Value Reference Range Interpretation Comments Urine Bilirubin (test code = 1978-6) NEGATIVE NEGATIVE [facility] HospitalUrine [id number] 20:07:00* Test Item Value Reference Range Interpretation Comments Urine Blood (test code = 81230-9) TRACE NEGATIVE [facility] HospitalUrine [id number] 20:07:00* Test Item Value Reference Range Interpretation Comments Urine Test (test code = 2106-3) NEGATIVE NEGATIVE [facility]
--- NOTE | 2020-01-09 18:39 | Emergency Department Note ---
History of Present Illnes History of Present Illness Chief Complaint: General Medicine Complaints History of Present Illness This is a 34 year old female . 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 +radial. seen in triage by remote inpatient coder abd elbow pain Historian: Patient, Family Member Arrival Mode: Car Onset (how long ago): day(s) ([employer] senior) Radiation: non-radiation, back, neck, extremity, abdomen, periumbilical, flank, proximal, distal, other Severity: mild Onset quality: sudden Duration (how long): day(s) ([employer] senior) Timing of current episode: constant Progression: improving Context: recent illness, recent surgery, recent immobilization, recent travel, trauma/injury, new medications, hx of DVT/PE, non-compliance w/ medications, other Relieving factors: none Exacerbating factors: none Treatments prior to arrival: none (MAGALIE CHEEMA NP) Past Medical/Family History Physician Review I have reviewed the patient's past medical and family history. Any updates have been documented here. (MAGALIE CHEEMA NP) Past Medical History Recent Fever: No Clinical Suspicion of Infectio: No New/Unexplained Change in Ment: No Other Medical History: ovarian cyst Past Surgical History: Cholecysctectomy Other Surgery: iud (MAGALIE CHEEMA NP) Social History Smoking Cessation: Never Smoker Alcohol Use: None Any Illegal Drug Use: No TB Exposure/Symptoms: No (MAGALIE CHEEMA NP) Family History Family history of heart diseas: No (MAGALIE CHEEMA NP) Other Last Tetanus: unknown Any Pre-Existing Lines (PICC,: No (MAGALIE CHEEMA NP) Review of Systems Review of Systems Constitutional: no symptoms EENTM: no symptoms Cardiovascular: no symptoms Respiratory: no symptoms Gastrointestinal: no symptoms Genitourinary: no symptoms Musculoskeletal: other (left fa pain - ) Neurological: no symptoms Psychological: no symptoms Endocrine: no symptoms Hematological/Lymphatic: no symptoms Review of other systems All other systems reviewed and negative. (MAGALIE CHEEMA NP) Physical Exam Related Data Allergies: Coded Allergies: No Known Allergies (Unverified , 04/05/16) Triage Vital Signs Vital Signs Date Time Temp Pulse Resp B/P (MAP) Pulse Ox O2 Delivery O2 Flow Rate FiO2 01/09/20 18:30 98.8 78 18 129/84 99 Vital signs reviewed: Yes (MAGALIE CHEEMA NP) Physical Exam CONSTITUTIONAL Constitutional: well-developed, well-nourished HENT HENT: normocephalic, atraumatic, oropharynx clear/moist, nose normal HENT L/R: left ext ear normal, right ext ear normal EYES Eyes: PERRL, conjunctivae normal NECK Neck: ROM normal PULMONARY Pulmonary: effort normal, breath sounds normal CARDIOVASCULAR Cardiovascular: regular rhythm, heart sounds normal, capillary refill normal, normal rate GASTROINTESTINAL Abdominal: soft, nontender, bowel sounds normal GENITOURINARY Genitourinary: exam deferred SKIN Skin: warm, dry MUSCULOSKELETAL Musculoskeletal: tenderness (left forearm - radial pulses += bilat cap refull < 3 sec no distal neuro deficits ); edema, deformity, swelling NEUROLOGICAL Neurological: alert, oriented x 3, no gross motor or sensory deficits PSYCHOLOGICAL Psychological: mood/affect normal, judgement normal (MAGALIE CHEEMA NP) Results Imaging Impressions Procedure: [id number] DX/FOREARM LEFT 2 VIEW Exam Date: 01/09/20 Exam Time: 184 REPORT STATUS: Signed Exam: left forearm AP and lateral. History: Pain in left forearm after lifting heavy object Comparison: None. Findings: There is normal bone mineralization. No acute, displaced fracture or dislocation. Joint spaces preserved. No abnormal soft tissue calcification or soft tissue defect. No soft tissue swelling. Impression: 1. No acute abnormalities Signed by: Dr. Teresa Fletcher M.D. on 01/09/2020 7:09 PM Dictated By: TERESA FLETCHER MD Electronically Signed By: TERESA FLETCHER MD on (MAGALIE CHEEMA NP) Procedures Procedures Procedure: Velcro splint and sling applied to left arm (MAGALIE CHEEMA NP) Critical Care Time Subsequent provider I assumed direction of critical care for this patient from another provider of my specialty. (MAGALIE CHEEMA NP) Assessment & Plan Reassessment Reassessment time: 18:38 Reassessment 34y f presented to ed c/o left forearm pain after lifting 60lb bag at work d enies fall contusion taruma - radial pulses += bilat cap refill < 3 sec no distial neuro deficits - ordered rad medicated w/ ultram (MAGALIE CHEEMA NP) Assessment & Plan Final Impression: (1) Sprain of forearm, left Assessment & Plan discussed rad results plan of care and f/u instructions plan: 1. follow up with orthopedic doctor in 1-2 days without fail 2, return to ed as needed 3. tylneol and motirn as needed 4. rx ultram (MAGALIE CHEEMA NP) Depart Disposition: HOME, SELF-CARE Last Vital Signs Date Time Temp Pulse Resp B/P (MAP) Pulse Ox O2 Delivery O2 Flow Rate FiO2 01/09/20 18:30 98.8 78 18 129/84 99 (MAGALIE CHEEMA NP) Home Meds No Active Prescriptions or Reported Meds Medications in the ED Tramadol HCl 100 mg ONCE ONCE PO ; Start 01/09/20 at 18:45; Stop 01/09/20 at 18:46; Status UNV (MAGALIE CHEEMA NP) Physician Attestation Provider Attestation The patient's history, exam findings, diagnostics, and a summary of any interventions or procedures was reviewed in detail with our DOLLY. I personally interviewed and examined the patient, and I have reviewed and agree with the HPI andexam. My personal exam shows [ forearm pain. Patient in good spirits. N/V intact. XR neg]. I confirm the diagnosis as documented by the DOLLY. I have reviewed and agree with the care plan articulated in the disposition section. (MAGALIE YOUNG DO) MAGALIE CHEEMA NP January 09, 2020 18:39 MAGALIE YOUNG DO January 09, 2020 19:19
[2020-01-09] MEDS ORDERED: TRAMADOL HCL 50 MG TAB PO ONE (18:45)
--- NOTE | 2020-01-09 19:12 | Diagnostic Imaging Report ---
Exam: left forearm AP and lateral. History: Pain in left forearm after lifting heavy object Comparison: None. Findings: There is normal bone mineralization. No acute, displaced fracture or dislocation. Joint spaces preserved. No abnormal soft tissue calcification or soft tissue defect. No soft tissue swelling. Impression: 1. No acute abnormalities Signed by: Dr. Ever Ordoñez M.D. on 01/09/2020 7:09 PM
[2020-01-09 19:53] VITALS: BP 120/80
== END 2020-01-09 19:55 | disposition home or self-care (01) ==
LOC: ER 17:58
DX: M79.632 Pain in left forearm (principal); S53.492A Other sprain of left elbow, initial encounter; X50.0XXA Overexertion from strenuous movement or load, initial encounter; Y99.0 Civilian activity done for income or pay
CPT/HCPCS: 99283